=== PATIENT | female | born 1985 | race Caucasian/White ===

== ENCOUNTER 2017-05-19 02:30 | Emergency (ER) | payer MEDICAID ==
[2017-05-19 02:35] VITALS: BP 130/87
[2017-05-19] MEDS ORDERED: Ibuprofen 200 MG Tab PO ONE (02:54)
--- NOTE | 2017-05-19 03:00 | EDM.PDOC ---
ED HPI GENERAL MEDICAL PROBLEM - General Chief Complaint: ENT Problem Stated Complaint: LEFT SIDE FACIAL PAIN Time Seen by Provider: 05/19/17 02:44 Source of Information: Reports: Patient, RN, RN Notes Reviewed History Limitations: Reports: No Limitations - History of Present Illness INITIAL COMMENTS - FREE TEXT/NARRATIVE: Patient presents to the ED at [facility] complaining of left ear pain, left facial pain, sore throat, and headache. Patient states her symptoms started around 8pm last night. She states she took some Tylenol for the pain, which seem to help but was awoken around 1:30am when the pain returned. No contacts or family members with similar symptoms. Patient denies any eye problems except of pressure behind the right eye. No cough. No chest pain. No sinus or rhinitis. She is having no trouble eating or drinking with the sore throat. Patient denies any N/V/D. Onset Date: 05/18/17 Onset Time: 20:00 Left Face Pain Score (Numeric/FACES): 10 - Related Data Allergies Allergy/AdvReac Type Severity Reaction Status Date / Time morphine Allergy Itching Verified 05/19/17 02:31 Home Meds: Home Meds Hydrocort/Neomycin/Polymyxin B [Cortisporin Otic Soln] 3 drop EARLF TID #1 bottle 05/19/17 [Rx] Past Medical History - Past Surgical History GI Surgical History: Reports: Appendectomy, Cholecystectomy Female Surgical History: Reports: Section Social & Family History - Tobacco Use Smoking Status *Q: Current Status Unknown - Alcohol Use Days Per Week of Alcohol Use: 0 - Recreational Drug Use Recreational Drug Use: No ED ROS ENT - Review of Systems Review Of Systems: See Below Constitutional: Denies: Fever, Chills, Weakness, Decreased Appetite HEENT: Reports: Ear Pain, Eye Pain. Denies: Rhinitis, Sinus Problem, Throat Pain Respiratory: Denies: Shortness of Breath, Cough Cardiovascular: Denies: Chest Pain, Palpitations GI/Abdominal: Denies: Diarrhea, Nausea, Vomiting Skin: Reports: No Symptoms Neurological: Reports: Headache. Denies: Dizziness ED EXAM, ENT - Physical Exam Exam: See Below Exam Limited By: No Limitations General Appearance: Alert, No Apparent Distress Eye Exam: Bilateral Eye: Normal Inspection, PERRL Ears: Canal Material (Left), Canal Swelling (Left), TM Erythema (Left), Other ( Right ear normal) Nose: Normal Inspection, Clear Rhinorrhea Mouth/Throat: Normal Inspection, Normal Oropharynx Neck: Supple Respiratory/Chest: No Respiratory Distress, Lungs Clear, Normal Breath Sounds Cardiovascular: Normal Peripheral Pulses, Regular Rate, Rhythm GI/Abdominal: Normal Bowel Sounds, Soft, Non-Tender Neurological: Alert, Oriented Skin: Warm, Dry, Intact, Normal Color, No Rash Course - Vital Signs Last Recorded V/S: Last Vital Signs Temp 36.1 C 05/19/17 02:32 Pulse 78 05/19/17 02:32 Resp 18 05/19/17 02:32 BP 130/87 05/19/17 02:32 Pulse Ox 100 05/19/17 02:32 - Orders/Labs/Meds Orders: Active Orders 24 hr Category Date Time Status Ibuprofen [Motrin] Med 05/19/17 02:54 Once 800 mg PO Q6H ONE Departure - Departure Time of Disposition: 03:02 Disposition: Home, Self-Care 01 Condition: Good Clinical Impression: Otitis externa of left ear Qualifiers: Otitis externa type: swimmer's ear Chronicity: acute Qualified Code(s): H60.332 - Swimmer's ear, left ear - Discharge Information Prescriptions: Hydrocort/Neomycin/Polymyxin B [Cortisporin Otic Soln] 3 drop EARLF TID #1 bottle Instructions: Otitis Externa Referrals: Booker Burns MD [Ordering Only Provider] - Additional Instructions: 1. Stay well hydrated and rest 2. Use drops for the full 7 days, even if your symptoms are getting better 3. Alternate Tylenol/Advil around the clock for the next couple days 4. Avoid and over the counter cold/flu medications, these will not help 5. Do not use any Q-tips or other foreign objects in either ear 6. See your Primary as symptoms warrant 7. Call with any questions/concerns 8. May use a heating pad to the left ear as tolerated, this may help sooth the ear pain 9. Avoid using straws - Problem List Review Problem List Initiated/Reviewed/Updated: Yes - My Orders Last 24 Hours: My Active Orders 05/19/17 02:54 Ibuprofen [Motrin] 800 mg PO Q6H ONE - Assessment/Plan Last 24 Hours: My Active Orders 05/19/17 02:54 Ibuprofen [Motrin] 800 mg PO Q6H ONE Assessment:: Left Otitis Externa Plan: Left Otitis externa, rest of exam normal. Will treat with Cortisporin drops for the next 7 days. Advised to used Tylenol/Advil. No Q-tips or foreign objects in either ear. May take several days for symptoms to start getting better. Avoid using straws. Follow up with PCP as needed.
== END 2017-05-19 03:13 | disposition home or self-care (01) ==
LOC: VM.ED 02:30
DX: H60.332 Swimmer's ear, left ear (principal); Z88.5 Allergy status to narcotic agent
CPT/HCPCS: 99282; A9270

== ENCOUNTER 2020-01-31 13:20 | Emergency (ER) | payer MEDICAID ==
[2020-01-31] MEDS ORDERED: Ondansetron 4 MG/2 ML SDV IV ONE (13:52)
[2020-01-31] MEDS ORDERED: Sodium Chloride 0.9% 10 ML Syringe FLUSH PRN (13:53)
[2020-01-31] MEDS ORDERED: fentaNYL 50 MCG/ML SDV IVPUSH ONE (13:53)
[2020-01-31 14:24] LABS: CHLORIDE,CL 102 mmol/L (98-107); SODIUM,NA 136 mmol/L (136-145)
[2020-01-31 14:33] LABS: PTT,PARTIAL THROMBOPLSTIN TIME 30.3 SEC (25.6-32.8)
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
[2020-01-31] MEDS ORDERED: Ketorolac 30 MG/ML SDV IVPUSH ONE (15:09)
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
== END 2020-01-31 15:30 | disposition home or self-care (01) ==
LOC: VM.ED 13:20
DX: S80.12XA Contusion of left lower leg, initial encounter (principal); S20.219A Contusion of unspecified front wall of thorax, initial encounter; F32.9 Major depressive disorder, single episode, unspecified; Z79.899 Other long term (current) drug therapy; Z88.5 Allergy status to narcotic agent; W55.22XA Struck by cow, initial encounter
CPT/HCPCS: 71046; 72170; 73552; 73590; 80053; 85025; 85610; 85730; 96374; 96375; 99283; 99285; J1885; J2405; J3010

== ENCOUNTER 2020-02-24 16:22 | Emergency (ER) | payer MEDICAID ==
[2020-02-24 16:35] VITALS: BP 120/81; PULSE 76
[2020-02-24] MEDS ORDERED: Ketorolac 30 MG/ML SDV IVPUSH ONE (16:50)
[2020-02-24] MEDS ORDERED: Metoclopramide 10 MG/2 ML SDV IVPUSH ONE (16:50)
[2020-02-24] MEDS ORDERED: Sodium Chloride 0.9% 10 ML Syringe FLUSH PRN (16:50)
[2020-02-24] MEDS ORDERED: Lactated Ringers 1,000 ML IV ONE (16:50)
[2020-02-24] MEDS ORDERED: diphenhydrAMINE 50 MG/ML SDV IVPUSH ONE (16:50)
--- NOTE | 2020-02-24 16:53 | EDM.PDOC ---
ED HPI GENERAL MEDICAL PROBLEM - General Chief Complaint: Headache Stated Complaint: HEADACHE Time Seen by Provider: 02/24/20 16:45 Source of Information: Reports: Patient - History of Present Illness INITIAL COMMENTS - FREE TEXT/NARRATIVE: Margie is a 34 y/o female who comes to the ER with a migraine. She was diagnosed with COVID on Wednesday. She reports that yesterday she started to get a headache and it had progressively gotten worse. She did try a oral Benadryl and some Aleve with no relief. The lights do aggrevate her sx and she has been nauseated. She has had migraines like this in the past. Frontal Headache Pain Score (Numeric/FACES): 9 - Related Data Allergies Allergy/AdvReac Type Severity Reaction Status Date / Time morphine Allergy Itching Verified 02/24/20 16:37 Home Meds: Home Meds Sertraline [Zoloft] 50 mg PO DAILY 02/13/18 [History] Past Medical History Musculoskeletal History: Reports: Back Pain, Chronic, Other (See Below) Other Musculoskeletal History: Degen disc disease Psychiatric History: Reports: Depression - Infectious Disease History Infectious Disease History: Reports: Novel Coronavirus - Past Surgical History HEENT Surgical History: Reports: Adenoidectomy, Tonsillectomy GI Surgical History: Reports: Appendectomy, Cholecystectomy Female Surgical History: Reports: Section Social & Family History - Tobacco Use Tobacco Use Status *Q: Unknown Ever Used Tobacco - Recreational Drug Use Recreational Drug Use: Yes Drug Use in Last 12 Months: Yes Recreational Drug Type: Reports: Marijuana/Hashish Recreational Drug Use Frequency: Weekly Recreational Drug Last Use: 02/21/20 Review of Systems - Review of Systems Review Of Systems: See Below Constitutional: Reports: No Symptoms Eyes: Reports: Photophobia Ears: Reports: No Symptoms Nose: Reports: No Symptoms Mouth/Throat: Reports: No Symptoms Respiratory: Reports: No Symptoms Cardiovascular: Reports: No Symptoms GI/Abdominal: Reports: Nausea Genitourinary: Reports: No Symptoms Musculoskeletal: Reports: No Symptoms Skin: Reports: No Symptoms Neurological: Reports: Headache Psychiatric: Reports: No Symptoms ED EXAM, GENERAL - Physical Exam Exam: See Below Exam Limited By: No Limitations General Appearance: Alert, WD/WN, No Apparent Distress (Adult female, sittingon ER cart holding her hands over her eyes.) Ears: Hearing Grossly Normal Nose: Normal Inspection Throat/Mouth: Normal Lips, Normal Voice Head: Atraumatic, Normocephalic Neck: Normal Inspection Respiratory/Chest: No Respiratory Distress, Lungs Clear, Prolonged Expiration Cardiovascular: Regular Rate, Rhythm GI/Abdominal: Normal Bowel Sounds, Soft, Non-Tender (Female) Exam: Deferred Rectal (Female) Exam: Deferred Back Exam: Normal Inspection Extremities: Normal Inspection, Normal Range of Motion, Normal Capillary Refill Neurological: Alert, Oriented, CN II-XII Intact, Normal Cognition, No Motor/Sensory Deficits Psychiatric: Normal Affect, Normal Mood Skin Exam: Warm, Dry, Intact Lymphatic: No Adenopathy Course - Vital Signs Text/Narrative:: 1644 The patient was seen by the [facility]. She was given a liter of LR, Toradol 30 mg IVP, Reglan 20mg IVP, and Benadryl 50 mg IVP. 1739 Patient reports headache improving and she is feeling better. Will send home after IV fluid are done. She was given written discharge instructions and sent home in stable condition. Last Recorded V/S: Last Vital Signs Temp 35.8 C L 02/24/20 16:28 Pulse 76 02/24/20 16:28 Resp 16 02/24/20 16:28 BP 120/81 02/24/20 16:28 Pulse Ox 99 02/24/20 16:28 - Orders/Labs/Meds Orders: Active Orders 24 hr Category Date Time Status Lactated Ringers [Ringers, Lactated] 1,000 ml Med 02/24/20 16:50 Ordered IV ONETIME Sodium Chloride 0.9% [Saline Flush] Med 02/24/20 16:50 Ordered 10 ml FLUSH ASDIRECTED PRN Saline Lock Insert [OM.PC] Stat Oth 02/24/20 16:50 Ordered Medication Orders Lactated Ringer's (Ringers, Lactated) 1,000 mls @ 999 mls/hr IV ONETIME ONE Stop: 02/24/20 17:50 Sodium Chloride (Saline Flush) 10 ml FLUSH ASDIRECTED PRN PRN Reason: Keep Vein Open Meds: Medications Generic Name Dose Route Start Last Admin Trade Name Freq PRN Reason Stop Dose Admin Lactated Ringer's 1,000 mls @ 999 mls/hr 02/24/20 16:50 Ringers, Lactated IV 02/24/20 17:50 ONETIME ONE Sodium Chloride 10 ml 02/24/20 16:50 Saline Flush FLUSH ASDIRECTED PRN Keep Vein Open Discontinued Medications Generic Name Dose Route Start Last Admin Trade Name Silvia PRN Reason Stop Dose Admin Diphenhydramine HCl 50 mg 02/24/20 16:50 Benadryl IVPUSH 02/24/20 16:51 ONETIME ONE Ketorolac Tromethamine 30 mg 02/24/20 16:50 Toradol IVPUSH 02/24/20 16:51 ONETIME ONE Metoclopramide HCl 20 mg 02/24/20 16:50 Reglan IVPUSH 02/24/20 16:51 ONETIME ONE Departure - Departure Time of Disposition: 17:42 Disposition: Home, Self-Care 01 Condition: Good Clinical Impression: Headache Qualifiers: Headache type: unspecified Headache chronicity pattern: unspecified pattern Intractability: intractable Qualified Code(s): R51.9 - Headache, unspecified - Discharge Information Instructions: Recurrent Migraine Headache, [id number] Referrals: Booker Burns MD [Primary Care Provider] - Forms: ED Department Discharge Additional Instructions: -Ibuprofen or Acetaminophen as needed -Stay well hydrated -Rest as needed -Follow up with your PCP for recheck or to discuss migraine prophylactic meds -Return to the ER as needed Sepsis Event Note (ED) - Evaluation Sepsis Screening Result: No Definite Risk - Focused Exam Vital Signs: Vital Signs Temp Pulse Resp BP Pulse Ox 02/24/20 16:28 35.8 C L 76 16 120/81 99 - My Orders Last 24 Hours: My Active Orders 02/24/20 16:50 Lactated Ringers [Ringers, Lactated] 1,000 ml IV ONETIME Sodium Chloride 0.9% [Saline Flush] 10 ml FLUSH ASDIRECTED PRN Saline Lock Insert [OM.PC] Stat - Assessment/Plan Last 24 Hours: My Active Orders 02/24/20 16:50 Lactated Ringers [Ringers, Lactated] 1,000 ml IV ONETIME Sodium Chloride 0.9% [Saline Flush] 10 ml FLUSH ASDIRECTED PRN Saline Lock Insert [OM.PC] Stat
== END 2020-02-24 18:10 | disposition home or self-care (01) ==
LOC: VM.ED 16:22
DX: R51.9 Headache, unspecified (principal); F32.9 Major depressive disorder, single episode, unspecified; Z86.19 Personal history of other infectious and parasitic diseases; Z88.5 Allergy status to narcotic agent; Z90.49 Acquired absence of other specified parts of digestive tract; Z79.899 Other long term (current) drug therapy
CPT/HCPCS: 96374; 96375; 99283; 99284; J1200; J1885; J2765; J7120

== ENCOUNTER 2021-01-13 13:33 | Emergency (ER) | payer MEDICAID ==
--- NOTE | 2021-01-13 14:11 | EDM.PDOC ---
ED HPI GENERAL MEDICAL PROBLEM - General Chief Complaint: Headache Stated Complaint: BODY AND STOMACH PAIN Time Seen by Provider: 01/13/21 13:57 Source of Information: Reports: Patient History Limitations: Reports: No Limitations - History of Present Illness INITIAL COMMENTS - FREE TEXT/NARRATIVE: Patient presents with severe left sided ear, jaw pain that radiates down to the left arm. Also complains of left sided arm and leg numbness. No weakness, no facial droop, no speech difficulty. 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 However ever since then has had difficulty with migraine headaches and doctor frequently with yen. Last CTA of the head and neck done in November of 2020. Normal. Also has some nausea. Ambulated into the ED. Reports this started about an hour [employer]. Also has significant history of anxiety. Onset: Today, Sudden Onset Date: 01/13/21 Onset Time: 12:30 Duration: Constant Location: Reports: Head, Face, Neck, Upper Extremity, Left, Lower Extremity, Left Quality: Reports: Sharp, Stabbing Severity: Severe Worsens with: Reports: Movement Associated Symptoms: Reports: Chest Pain Left Jaw Pain Score (Numeric/FACES): 8 - Related Data Allergies Allergy/AdvReac Type Severity Reaction Status Date / Time morphine Allergy Itching Verified 02/24/20 16:37 Home Meds: Home Meds Sertraline [Zoloft] 50 mg PO DAILY 02/13/18 [History] Past Medical History Musculoskeletal History: Reports: Back Pain, Chronic, Other (See Below) Other Musculoskeletal History: Degen disc disease Psychiatric History: Reports: Depression - Infectious Disease History Infectious Disease History: Reports: Novel Coronavirus - Past Surgical History HEENT Surgical History: Reports: Adenoidectomy, Tonsillectomy GI Surgical History: Reports: Appendectomy, Cholecystectomy Female Surgical History: Reports: Section ED ROS GENERAL - Review of Systems Review Of Systems: See Below Constitutional: Reports: No Symptoms HEENT: Reports: Ear Pain Respiratory: Reports: No Symptoms Cardiovascular: Reports: Chest Pain Endocrine: Reports: No Symptoms GI/Abdominal: Reports: No Symptoms : Reports: No Symptoms Musculoskeletal: Reports: Neck Pain, Arm Pain, Leg Pain Skin: Reports: No Symptoms Neurological: Reports: Headache, Numbness, Weakness Psychiatric: Reports: No Symptoms Hematologic/Lymphatic: Reports: No Symptoms Immunologic: Reports: No Symptoms - Physical Exam Exam: See Below Exam Limited By: No Limitations General Appearance: Alert, WD/WN, No Apparent Distress Ears: Normal External Exam, Normal Canal, Hearing Grossly Normal, Normal TMs Nose: Normal Inspection, Normal Mucosa, No Blood Throat/Mouth: Normal Inspection, Normal Lips, Normal Teeth, Normal Gums, Normal Oropharynx, Normal Voice, No Airway Compromise Head Exam: Atraumatic, Normocephalic Neck: Normal Inspection, Supple, Non-Tender, Full Range of Motion Respiratory/Chest: No Respiratory Distress, Lungs Clear, Normal Breath Sounds, No Accessory Muscle Use, Chest Non-Tender Cardiovascular: Normal Peripheral Pulses, Regular Rate, Rhythm, No Edema, No Gallop, No JVD, No Murmur, No Rub GI/Abdominal: Normal Bowel Sounds, Soft, Non-Tender, No Organomegaly, No Distention, No Abnormal Bruit, No Mass Neuro Exam (Abbreviated): Alert, Oriented, CN II-XII Intact, Normal Cognition, Normal Gait, Normal Reflexes, No Motor/Sensory Deficits Back Exam: Normal Inspection, Full Range of Motion, NT Extremities: Normal Inspection, Normal Range of Motion, Non-Tender, No Pedal Edema, Normal Capillary Refill Psychiatric: Normal Affect, Normal Mood Skin Exam: Warm, Dry, Intact, Normal Color, No Rash #1 Interpretation EKG Date: 01/13/21 Time: 13:36 Rhythm: NSR Rate (Beats/Min): 73 Morgan: Normal P-Wave: Present QRS: Normal ST-T: Normal QT: Normal Comparison: NA - No Prior EKG (Normal EKG, NSR) Course - Vital Signs Last Recorded V/S: Last Vital Signs Temp 36.8 C 01/13/21 13:35 Pulse 92 01/13/21 13:35 Resp 18 01/13/21 13:35 BP 142/88 H 01/13/21 13:35 Pulse Ox 97 01/13/21 13:35 - Orders/Labs/Meds Orders: Active Orders 24 hr Category Date Time Status Saline Lock Insert [OM.PC] Routine Oth 01/13/21 14:13 Ordered Labs: Laboratory Tests 01/13/21 01/13/21 01/13/21 Range/Units 13:40 13:40 13:40 WBC 10.2 H (4.0-10.0) x10^3/uL RBC 4.82 (4.00-5.50) x10^6/uL Hgb 15.4 (12.0-16.0) g/dL Hct 43.2 (33.0-47.0) % MCV 89.6 (78.0-93.0) fL MCH 32.0 (26.0-32.0) pg MCHC 35.6 (32.0-36.0) g/dL RDW Coeff of Pritesh 11.6 (10.0-15.0) % Plt Count 264 (130-400) x10^3/uL Immature Gran % (Auto) 0.10 (0.00-0.43) % Neut % (Auto) 73.0 (50.0-80.0) % Lymph % (Auto) 19.7 L (25.0-50.0) % [place] % (Auto) 6.2 (2.0-11.0) % Eos % (Auto) 0.5 (0.0-4.0) % Baso % (Auto) 0.5 (0.2-1.2) % Neut # (Auto) 7.4 (1.8-7.7) x10^3/uL Lymph # (Auto) 2.0 (1.0-4.8) x10^3/uL [place] # (Auto) 0.6 (0.0-0.8) x10^3/uL Eos # (Auto) 0.1 (0.0-0.5) x10^3/uL Baso # (Auto) 0.1 (0.0-0.2) x10^3/uL Immature Gran # (Auto) 0.01 (0.00-0.07) x10^3/uL D-Dimer, Quantitative 0.41 (<=0.58) mg/LFEU Sodium 139 (136-145) mmol/L Potassium 3.9 (3.5-5.1) mmol/L Chloride 104 (98-107) mmol/L Carbon Dioxide 26 (21-32) mmol/L Anion Gap 12.9 (5-15) mmol/L BUN 14 (7-18) mg/dL Creatinine 0.9 (0.55-1.02) mg/dL Est Cr Clr Drug Dosing 73.55 mL/min Estimated GFR (MDRD) > 60 Glucose 98 (70-99) mg/dL Calcium 9.5 (8.5-10.1) mg/dL Corrected Calcium 9.2 (8.5-10.1) mg/dL Total Bilirubin 0.4 (0.2-1.0) mg/dL AST 17 (15-37) U/L ALT 25 (14-59) U/L Alkaline Phosphatase 79 (46-116) U/L Troponin I High Sens 5 (<=51) ng/L Total Protein 8.0 (6.4-8.2) g/dL Albumin 4.4 (3.4-5.0) g/dL Globulin 3.6 Albumin/Globulin Ratio 1.22 Meds: Medications Discontinued Medications Generic Name Dose Route Start Last Admin Trade Name Freq PRN Reason Stop Dose Admin Dexamethasone 8 mg 01/13/21 15:02 01/13/21 15:33 Dexamethasone 4 Mg/Ml Sdv IVPUSH 01/13/21 15:03 8 mg ONETIME ONE Administration Diphenhydramine HCl 50 mg 01/13/21 15:02 01/13/21 15:34 Diphenhydramine 50 Mg/Ml Sdv IVPUSH 01/13/21 15:03 50 mg ONETIME ONE Administration Hydromorphone HCl 0.5 mg 01/13/21 14:22 01/13/21 14:34 Hydromorphone 1 Mg/Ml Syringe IVPUSH 01/13/21 14:23 0.5 mg ONETIME ONE Administration Lactated Ringer's 1,000 mls @ 999 mls/hr 01/13/21 15:23 01/13/21 15:20 Ringers, Lactated IV 01/13/21 16:23 999 mls/hr ONETIME ONE Administration Ketorolac Tromethamine 30 mg 01/13/21 15:02 01/13/21 15:31 Ketorolac 30 Mg/Ml Sdv IVPUSH 01/13/21 15:03 30 mg ONETIME ONE Administration Ondansetron HCl 4 mg 01/13/21 15:02 01/13/21 15:30 Ondansetron 4 Mg/2 Ml Sdv IVPUSH 01/13/21 15:03 4 mg ONETIME ONE Administration Orphenadrine Citrate 60 mg 01/13/21 15:02 01/13/21 15:39 Orphenadrine 60 Mg/2 Ml Inj IM 01/13/21 15:03 60 mg ONETIME ONE Administration Sodium Chloride 10 ml 01/13/21 14:13 Sodium Chloride 0.9% 10 Ml Syringe FLUSH ASDIRECTED PRN Keep Vein Open Departure - Departure Time of Disposition: 16:15 Disposition: Home, Self-Care 01 Condition: Fair Clinical Impression: Migraine Qualifiers: Migraine type: without aura Status migrainosus presence: without status migrainosus Intractability: not intractable Qualified Code(s): G43.009 - Migraine without aura, not intractable, without status migrainosus - Discharge Information *PRESCRIPTION DRUG MONITORING PROGRAM REVIEWED*: Not Applicable *COPY OF PRESCRIPTION DRUG MONITORING REPORT IN PATIENT REGGIE: Not Applicable Instructions: Migraine Headache Referrals: Booker Burns MD [Primary Care Provider] - Forms: ED Department Discharge Additional Instructions: Please go home and rest I did visit with Dr. Delgado at [facility] in [place]. He did state that if you continue to have symptoms you should come to the ED there. Stay well hydrated Please call if you have any questions or concerns, or worsening symptoms Sepsis Event Note (ED) - Focused Exam Vital Signs: Vital Signs Temp Pulse Resp BP Pulse Ox 01/13/21 13:35 36.8 C 92 18 142/88 H 97 ED Communication - ED Communication Date/Time Date: 01/13/21 Time Called: 14:00 - Discussed Case With (1) Discussed Case With (1): Other Provider (Call placed to [facility] in [place]. Spoke with Dr. Delgado, neurologist who is familiar with patient. Last CTA in November which was normal. Seen multiple times for similar type symptoms and treated for migraine which usually resolves the symptoms, if not come to [facility] ED mariza) - Problem List & Annotations (1) Migraine SNOMED Code(s): 48186974 Code(s): G43.909 - MIGRAINE, UNSP, NOT INTRACTABLE, WITHOUT STATUS MIGRAINOSUS Status: Acute Priority: Medium Qualifiers: Migraine type: without aura Status migrainosus presence: without status migrainosus Intractability: not intractable Qualified Code(s): G43.009 - Migraine without aura, not intractable, without status migrainosus - Problem List Review Problem List Initiated/Reviewed/Updated: Yes - My Orders Last 24 Hours: My Active Orders 01/13/21 14:13 Saline Lock Insert [OM.PC] Routine - Assessment/Plan Last 24 Hours: My Active Orders 01/13/21 14:13 Saline Lock Insert [OM.PC] Routine Assessment:: migraine Plan: Discharge to home with strict instructions to return to the [facility] ED if symptoms do not improve or worsen.
[2021-01-13] MEDS ORDERED: Sodium Chloride 0.9% 10 ML Syringe FLUSH PRN (14:13)
[2021-01-13 14:21] VITALS: BP 142/88; PULSE 92
[2021-01-13] MEDS ORDERED: HYDROmorphone 1 MG/ML Syringe IVPUSH ONE (14:22)
[2021-01-13 14:31] LABS: ANION GAP 12.9 mmol/L (5-15); CHLORIDE,CL 104 mmol/L (98-107); SODIUM,NA 139 mmol/L (136-145)
[2021-01-13] MEDS ORDERED: Ondansetron 4 MG/2 ML SDV IVPUSH ONE (15:02)
[2021-01-13] MEDS ORDERED: Orphenadrine 60 MG/2 ML Inj IM ONE (15:02)
[2021-01-13] MEDS ORDERED: Dexamethasone 4 MG/ML SDV IVPUSH ONE (15:02)
[2021-01-13] MEDS ORDERED: Ketorolac 30 MG/ML SDV IVPUSH ONE (15:02)
[2021-01-13] MEDS ORDERED: diphenhydrAMINE 50 MG/ML SDV IVPUSH ONE (15:02)
[2021-01-13] MEDS ORDERED: Lactated Ringers 1,000 ML IV ONE (15:23)
== END 2021-01-13 16:30 | disposition home or self-care (01) ==
LOC: VM.ED 13:33
DX: G43.009 Migraine without aura, not intractable, without status migrainosus (principal); Z88.5 Allergy status to narcotic agent; Z86.16 Personal history of COVID-19
CPT/HCPCS: 80053; 84484; 85025; 85379; 93005; 93010; 96372; 96374; 96375; 99284; 99284-25; J1100; J1170; J1200; J1885; J2360; J2405; J7120

== ENCOUNTER 2024-04-27 17:03 | Emergency (ER) | payer MEDICAID ==
[2024-04-27] MEDS ORDERED: Sodium Chloride 0.9% 10 ML Syringe FLUSH PRN (17:38)
[2024-04-27] MEDS: Ondansetron 4 MG/2 ML SDV IVPUSH ONE (17:46)
[2024-04-27] MEDS: fentaNYL 50 MCG/ML SDV IVPUSH ONE (17:54)
[2024-04-27] MEDS: Diphtheria,Pertussis(Acell),Tetanus Vaccine 0.5 ML Syringe IM ONE (17:56)
[2024-04-27] MEDS ORDERED: Lidocaine 1% 30 ML SDV INJECT ONE (18:11)
[2024-04-27] MEDS: Ketorolac 30 MG/ML SDV IVPUSH ONE (18:42)
[2024-04-27] MEDS: LORazepam 2 MG/ML SDV IVPUSH ONE (18:43)
[2024-04-27] MEDS: cefTRIAXone 2 GM Vial IVPUSH ONE (20:13)
[2024-04-27] MEDS: Acetaminophen/HYDROcodone 325-5 MG Tab PO ONE (20:34)
[2024-04-27] MEDS: Cyclobenzaprine 10 MG Tab PO ONE (20:35)
[2024-04-27] MEDS: Take Home: Acetaminophen/HYDROcodone 325-5 MG, 5 Tab Pack PO ONE (20:35)
[2024-04-28 21:24] VITALS: BP 122/66; PULSE 90
== END 2024-04-27 20:40 | disposition home or self-care (01) ==
LOC: VM.ED 17:03
DX: S01.85XA Open bite of other part of head, initial encounter (principal); S71.152A Open bite, left thigh, initial encounter; Z88.5 Allergy status to narcotic agent; Z79.899 Other long term (current) drug therapy; Z86.16 Personal history of COVID-19; W57.XXXA Bitten or stung by nonvenomous insect and other nonvenomous arthropods, initial encounter
CPT/HCPCS: 12015; 70450; 70486; 72125; 90471; 90715; 96374; 96375; 99284-25; A9270-GY; J0696; J1885; J2060; J2405; J3010

== ENCOUNTER 2024-06-20 23:01 | Emergency (ER) | payer MEDICAID ==
[2024-06-20] MEDS: Ondansetron 4 MG/2 ML SDV IVPUSH ONE (23:19)
[2024-06-20] MEDS: HYDROmorphone 1 MG/ML Syringe IVPUSH ONE (23:20)
[2024-06-20 23:22] LABS: BASOPHILS PERCENT AUTO 0.3 % (0.2-1.2); EOSINOPHILS ABSOLUTE AUTO 0.1 x10^3/uL (0.0-0.5); EOSINOPHILS PERCENT AUTO 0.8 % (0.0-4.0); HEMOGLOBIN 14.9 g/dL (12.0-16.0); IMMATURE GRAN ABSOLUTE AUTO 0.02 x10^3/uL (0.00-0.07); LYMPHOCYTES ABSOLUTE AUTO 2.7 x10^3/uL (1.0-4.8); LYMPHOCYTES PERCENT AUTO 29.7 % (25.0-50.0); MEAN CORPUSCULAR HEMOGLOBIN 33.4 pg (26.0-32.0); MEAN CORPUSCULAR HGB CONC 36.3 g/dL (32.0-36.0); MEAN CORPUSCULAR VOLUME 91.9 fL (78.0-93.0); MONOCYTES ABSOLUTE AUTO 0.9 x10^3/uL (0.0-0.8); MONOCYTES PERCENT AUTO 9.5 % (2.0-11.0); NEUTROPHILS ABSOLUTE AUTO 5.3 x10^3/uL (1.8-7.7); NEUTROPHILS PERCENT AUTO 59.5 % (50.0-80.0); PLATELET COUNT,PLT 231 x10^3/uL (130-400); RED BLOOD CELL COUNT 4.46 x10^6/uL (4.00-5.50)
[2024-06-20] MEDS: Iopamidol 612 MG/ML 100 ML Bottle IVPUSH ONE (23:25)
[2024-06-20 23:36] LABS: A/G RATIO 1.21; ALANINE AMINOTRANSFERASE,ALT 27 U/L (14-59); ALKALINE PHOSPHATASE 66 U/L (46-116); ASPARTATE AMNIOTRANSFERASE,AST 16 U/L (15-37); BILIRUBIN TOTAL 0.2 mg/dL (0.2-1.0); BLOOD UREA NITROGEN,BUN 22 mg/dL (7-18); CALCIUM 9.4 mg/dL (8.5-10.1); CARBON DIOXIDE,CO2 26 mmol/L (21-32); CHLORIDE,CL 104 mmol/L (98-107); CREATININE 0.9 mg/dL (0.55-1.02); GLUCOSE RANDOM 88 mg/dL (70-99); PROTEIN TOTAL,TP 7.3 g/dL (6.4-8.2); SODIUM,NA 139 mmol/L (136-145)
[2024-06-20 23:37] LABS: ESTIMATED GFR 85 mL/min (>=60)
[2024-06-21] MEDS ORDERED: Ibuprofen 200 MG Tab PO STA (00:15)
[2024-06-21 00:22] LABS: APPEARANCE,URINE CLEAR (CLEAR); BILIRUBIN,URINE NEGATIVE (NEGATIVE); COLOR,URINE YELLOW (YELLOW); GLUCOSE,URINE NEGATIVE (NEGATIVE); KETONES,URINE NEGATIVE (NEGATIVE); LEUKOCYTE ESTERASE,URINE NEGATIVE (NEGATIVE); NITRITE,URINE NEGATIVE (NEGATIVE); OCCULT BLOOD,URINE NEGATIVE (NEGATIVE); PH,URINE 7.5 (5.0-8.0); PROTEIN,URINE NEGATIVE (NEGATIVE); UROBILINOGEN,URINE 0.2 EU/dL (0.2)
[2024-06-21] MEDS: HYDROmorphone 1 MG/ML Syringe IVPUSH ONE (00:29)
[2024-06-21] MEDS: diphenhydrAMINE 50 MG/ML SDV IVPUSH ONE (01:20)
[2024-06-21] MEDS: Take Home: Acetaminophen/HYDROcodone 325-10 MG, 5 Tab Pack PO ONE (01:41)
[2024-06-21] MEDS: Take Home: Cyclobenzaprine 10 MG Tab, 4 Tab Pack PO ONE (01:41)
[2024-06-21] MEDS: Cyclobenzaprine 10 MG Tab PO ONE (01:41)
[2024-06-21] MEDS: Acetaminophen/HYDROcodone 325-10 MG Tab PO ONE (01:41)
== END 2024-06-21 01:50 | disposition home or self-care (01) ==
LOC: VM.ED 23:01
DX: S09.93XA Unspecified injury of face, initial encounter (principal); S29.8XXA Other specified injuries of thorax, initial encounter; Z88.6 Allergy status to analgesic agent; Z79.899 Other long term (current) drug therapy; Z86.16 Personal history of COVID-19; Z90.49 Acquired absence of other specified parts of digestive tract; W55.22XA Struck by cow, initial encounter
CPT/HCPCS: 70450; 70486; 71260; 72125; 73030-RT; 74177; 80053; 81003; 81025; 85025; 96374; 96375; 96376; 99284; 99284-25; A9270-GY; J1171; J1200; J2405; Q9967